=== PATIENT | female | born 1940 | race Caucasian/White ===

== ENCOUNTER → 2019-04-09 | Day surgery (SDC) | payer MEDICARE, BC ==
[~2019-04-09] MED LIST: ACETAMINOPHEN 325 MG TABLET PO PRN; ALBUTEROL SULFATE 2.5 MG/3 ML NEBU. NEB PRN; ATROPINE 0.5 MG/5 ML DISP.SYRIN. IV PRN; DILT360T7 PO; FAMO-63 PO; FLUT100D IH; IV RINGERS SOLUTION,LACTATED 1,000 ML IV SCH; LOSA50TA86 PO; METF500T16 PO; METO-239 PO; ONDANSETRON PF 4 MG/2 ML VIAL. IV PRN; PHENOL ORAL SPRAY 177ML BOTTLE. MM PRN; PROPOFOL 40 ML IV ONE; TYLENOL PM PO; diphenhydrAMINE 50 MG/ML VIAL IV PRN
[2019-04-09 11:35] VITALS: BP 139/69
--- NOTE | 2019-04-10 17:10 | PATHOLOGY ---
[facility] Accession Number: [id number] . 01 Material submitted: . PART A: stomach - GASTRIC BX PART B: esophagus - DISTAL ESOPHAGUS BX. Modifiers: distal PART C: colon - TRANSVERSE POLYP. Modifiers: transverse . 01 Clinical history: . None provided. . 02 Diagnosis: A. Gastric biopsies: - Congestion and slight chronic inflammation. . B. Esophageal biopsy: - Segment of mildly hyperplastic squamous esophageal mucosa. . C. Colon biopsy, transverse colon polyp: - Hyperplastic polyp. [facility] 04/10/2019 1007 Local . 02 Comment: Sections of the gastric biopsy reveal segments of gastric body and antral/body transition mucosa showing congestion and slight chronic inflammation. A properly controlled immunoperoxidase stain for Helicobacter is negative for Helicobacter organisms. . Sections of the distal esophageal biopsy reveal a segment of mildly hyperplastic squamous esophageal mucosa. There is no evidence of Patel's change, dysplasia, or malignancy. . Sections of the transverse colon biopsy reveal a hyperplastic polyp. There are no adenomatous changes or evidence of malignancy. ([facility]/db; 04/10/2019) . Special stain performed: Immunoperoxidase stain for Helicobacter on A1. . 02 Electronically signed: . Chano Gardner MD, Pathologist NPI- [id number] . 01 Gross description: . A. Received in formalin labeled "[facility], gastric BX" is a 0.5 x 0.5 x 0.1 cm aggregate of dominguez-brown soft tissue fragments. The specimen is submitted entirely in A1. . B. Received in formalin labeled "[facility], distal esophagus" is a 0.4 x 0.2 x 0.1 cm aggregate of dominguez-brown soft tissue fragments. The specimen is submitted entirely in B1. . C. Received in formalin labeled "[facility], transverse polyp" is a 0.2 x 0.2 x 0.1 cm fragment of dominguez-brown soft tissue. The specimen is submitted entirely in C1. ([facility]; 04/09/2019) [facility] 04/09/2019 1942 Local . 02 Pathologist provided ICD-10: K29.50, K63.5, Z12.11 . 02 CPT . 068605, 539516, [id number], [id number] Specimen Comment: A courtesy copy of this report has been sent to [phone] Specimen Comment: Report sent to Performed at: 01 [facility] [address], [place] [id number] MD Lio Landaverde MD Phone: [phone] Performed at: 02 [facility] [place] [address], [place] [id number] MD Chano Gardner MD Phone: [phone]
== END ==
LOC: SURG 09:11
PROVIDERS: ATTEND Emergency Medicine
DX: K92.1 Melena (principal); K63.5 Polyp of colon; K57.30 Diverticulosis of large intestine without perforation or abscess without bleeding; K29.50 Unspecified chronic gastritis without bleeding; K64.8 Other hemorrhoids; I10 Essential (primary) hypertension; E11.9 Type 2 diabetes mellitus without complications; J44.9 Chronic obstructive pulmonary disease, unspecified; K21.9 Gastro-esophageal reflux disease without esophagitis; Z90.710 Acquired absence of both cervix and uterus; Z90.49 Acquired absence of other specified parts of digestive tract; Z90.13 Acquired absence of bilateral breasts and nipples; Z85.118 Personal history of other malignant neoplasm of bronchus and lung; Z79.84 Long term (current) use of oral hypoglycemic drugs
CPT/HCPCS: 45380; 88305; 88342; J2704; J7120